=== PATIENT | male | born 1985 | race American Indian/Alaskan Native ===

== ENCOUNTER 2022-03-13 17:28 | Emergency (ER) | payer SELFPAY ==
--- NOTE | 2022-03-13 17:40 | Event Note ---
ED Screening Note ED Screening Note: new wound x 1 week rle calf area no hx no md swelling leg fever/chills endorses cp/sob This initial assessment/diagnostic orders/clinical plan/treatment(s) is/are subject to change based on patients health status, clinical progression and re- assessment by fellow clinical providers in the ED. Further treatment and workup at subsequent clinical providers discretion. Patient/guardian urged not to elope from the ED as their condition may be serious if not clinically assessed and managed. Initial orders include: labs ua ekg
[2022-03-13 17:41] VITALS: BP 164/95
[2022-03-13 18:35] LABS: Alanine Aminotransferase 19 units/L (7-56); Albumin 3.5 g/dL (3.9-5); Blood Urea Nitrogen 14 mg/dL (9-20); Calcium 9.1 mg/dL (8.4-10.2); Hemolysis Index 9
[2022-03-13 18:42] LABS: BUN/Creatinine Ratio 20
[2022-03-13 19:10] LABS: Hematocrit 39.2 % (35.5-45.6); Mean Corpuscular HGB Conc 33 % (32-34); Mean Corpuscular Volume 86 fl (84-94); Platelet Count 489 K/mm3 (140-440); Red Blood Count 4.56 M/mm3 (3.65-5.03); Red Cell Distribution Width 13.4 % (13.2-15.2)
--- NOTE | 2022-03-15 19:33 | Electrocardiograph Report ---
[facility] Test Date: 2022-03-13 Test Time: 18:09:26 Pat Name: APARNA WILSON Department: Room: Gender: M Shuttle Filler: NIGEL : 1985 Requested By: EVANGELIST DOHERTY Order Number: [id number] Reading MD: Maty Carrera Measurements Intervals [place] Rate: 78 P: 48 NE: 170 QRS: 16 QRSD: 92 T: 37 QT: 393 QTc: 448 Interpretive Statements Sinus rhythm ST elev, probable normal early repol pattern No previous ECG available for comparison Electronically Signed On 03-15-2022 19:33:17 EDT by Maty Carrera
== END 2022-03-15 08:39 | disposition left against medical advice (07) ==
LOC: ED 17:28
DX: S80.922A Unspecified superficial injury of left lower leg, initial encounter (principal); Z53.21 Procedure and treatment not carried out due to patient leaving prior to being seen by health care provider; S80.921A Unspecified superficial injury of right lower leg, initial encounter; X58.XXXA Exposure to other specified factors, initial encounter; Y93.89 Activity, other specified; Y92.89 Other specified places as the place of occurrence of the external cause; Y99.8 Other external cause status
CPT/HCPCS: 36415; 80053; 82140; 84484; 85027; 93005